=== PATIENT | female | born 1980 | race Caucasian/White ===

== ENCOUNTER 2017-05-22 18:28 | Emergency (ER) | payer MEDICAID, SELFPAY ==
[2017-05-22 18:29] VITALS: BP 135/78; PULSE 62; RESP 14; TEMP 36.2; O2SAT 100; BMI 25.5
[2017-05-22 18:39] VITALS: BP 101/74; PULSE 68; RESP 14; O2SAT 98
--- NOTE | 2017-05-22 18:55 | RAD_ITS ---
STUDY: X-RAY - LEFT WRIST REASON FOR EXAM: Female, 36 years old. Left-sided wrist pain for several months. Patient states she injured it at work. TECHNIQUE: 3 view(s) of the wrist were obtained. COMPARISON: None. FINDINGS: Normal visualized distal radius and ulna. Normal radiocarpal articulation. Normal distal radioulnar articulation. Normal carpal bones. Normal carpal articulations. Normal carpometacarpal articulation of the thumb. Normal second through fifth carpometacarpal articulations. Normal visualized metacarpal bones. There is mild soft tissue swelling. There is no demonstrated acute fracture. RAD/Wrist min 3 Views IMPRESSION: Soft tissue swelling. There is no radiographic evidence for healing fracture. Electronically Signed: Mei Duarte MD at 19:19 EST , Service support ,
--- NOTE | 2017-05-22 19:34 | ED.VISSUMM ---
- ER Visit Summary Date of Service: 05/22/17 Chief Complaint: Left wrist pain History of Present Illness: The patient is a 36 F who states that she injured her left wrist a couple months ago. She believes this happened when she picked up something in a wrong angle and twisted it funny. She is now started to have more pain in that wrist especially when putting pressure on her hand. She is right-hand dominant. She has not seen anyone for this. She does report a history of reflux disease. Physical Examination: Vital signs are unremarkable. Head neck examination is normal. Heart is regular rate and rhythm. Lung sounds are clear. Left upper extremity examination reveals mild tenderness over the extensor tendons of the left wrist. There is no evidence of edema or erythema. She has normal cap refill and sensation. Test Results: Left wrist x-rays reveal soft tissue swelling. There is no evidence of a healing fracture. Emergency Department Course and Treatment: Patient has had problems with NSAIDs in the past. She will be treated with a short dose of prednisone along with a Velcro wrist splint. Treatment Plan: [] Disposition: Discharge Impression: Tendinitis left wrist This note was generated with [employer] dictation software. It may contain incorrect words, spelling, and punctuation that were not noted in review of the chart prior to signing ED Disposition - Plan for ED Patient: Disposition: Home or Assisted Living Chief Complaint: Upper Extremity Injury Instructions: ED Tendinitis Calcific Prescriptions: Prednisone [Deltasone] 40 mg PO DAILY #10 tablet Referrals: Ta Petty MD [Primary Care Provider] - 1-2 Weeks
[2017-05-22 19:49] VITALS: BP 106/71; PULSE 76; RESP 16; O2SAT 100
== END 2017-05-22 19:49 | disposition home or self-care (01) ==
PROVIDERS: Emergency Provider Emergency Medicine; Family Provider Family Medicine; PCP Family Medicine
DX: M77.9 Enthesopathy, unspecified (principal); K21.9 Gastro-esophageal reflux disease without esophagitis; X50.1XXA Overexertion from prolonged static or awkward postures, initial encounter; Y93.9 Activity, unspecified; Y92.9 Unspecified place or not applicable; Z86.59 Personal history of other mental and behavioral disorders; Z87.891 Personal history of nicotine dependence
CPT/HCPCS: 73110; 99283

== ENCOUNTER 2017-07-01 10:46 | Emergency (ER) | payer MEDICAID, SELFPAY ==
[2017-07-01 10:46] VITALS: BP 132/85; PULSE 70; RESP 16; TEMP 37.1; O2SAT 100; BMI 24.5
--- NOTE | 2017-07-01 11:16 | ED.VISSUMM ---
- ER Visit Summary Date of Service: 07/01/17 Chief Complaint: Left wrist pain History of Present Illness: The patient is a 36 F reports initial pain to her left wrist that started last February. She does do repetitive motion at work. She was seen in the ER on May 22 but did not want to file Worker's Comp. at that time. Her symptoms were consistent with tendinitis. X-ray was negative. She is given prednisone in a Velcro wrist splint. 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 She now wishes to file under Worker's Comp. She is right-hand dominant. She states that she has been taking Tylenol and ibuprofen without improvement. Physical Examination: Vital signs are unremarkable. Head and neck examination is unremarkable. Heart is regular rate and rhythm. Lung sounds are clear. Left upper extremity examination reveals minimal tenderness to palpation of the dorsal left wrist. No masses are noted. She is normal coloration. She has full range of motion with normal strength and sensation. Test Results: Patient had x-rays performed approximately 6 weeks ago. There is no indication for repeat imaging at this time. Emergency Department Course and Treatment: We placed in an Allen wrap. I will offer her another short course of prednisone, but do not feel that narcotics are necessary. She is already taking Tylenol and ibuprofen at home. Patient will now be given referral [facility] evaluation if needed. Treatment Plan: [] Disposition: Discharge Impression: Tendinitis left wrist This note was generated with [employer] dictation software. It may contain incorrect words, spelling, and punctuation that were not noted in review of the chart prior to signing ED Disposition - Plan for ED Patient: Chief Complaint: Upper Extremity Injury Referrals: Ta Petty MD [Primary Care Provider] -
--- NOTE | 2017-07-01 11:19 | ED.DCSUM_ITS ---
- ER Visit Summary Date of Service: 07/01/17 Chief Complaint: Left wrist pain History of Present Illness: The patient is a 36 F reports initial pain to her left wrist that started last February. She does do repetitive motion at work. She was seen in the ER on May 22 but did not want to file Worker's Comp. at that time. Her symptoms were consistent with tendinitis. X-ray was negative. She is given prednisone in a Velcro wrist splint. 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 She now wishes to file under Worker's Comp. She is right- hand dominant. She states that she has been taking Tylenol and ibuprofen without improvement. Physical Examination: Vital signs are unremarkable. Head and neck examination is unremarkable. Heart is regular rate and rhythm. Lung sounds are clear. Left upper extremity examination reveals minimal tenderness to palpation of the dorsal left wrist. No masses are noted. She is normal coloration. She has full range of motion with normal strength and sensation. Test Results: Patient had x-rays performed approximately 6 weeks ago. There is no indication for repeat imaging at this time. Emergency Department Course and Treatment: We placed in an Allen wrap. I will offer her another short course of prednisone, but do not feel that narcotics are necessary. She is already taking Tylenol and ibuprofen at home. Patient will now be given referral to [facility] for orthopedic evaluation if needed. Treatment Plan: [] Disposition: Discharge Impression: Tendinitis left wrist This note was generated with [employer] dictation software. It may contain incorrect words, spelling, and punctuation that were not noted in review of the chart prior to signing ED Disposition - Plan for ED Patient: Chief Complaint: Upper Extremity Injury Referrals: Ta Petty MD [Primary Care Provider] -
--- NOTE | 2017-07-01 11:20 | ED.DEP ---
ED Disposition - Plan for ED Patient: Disposition: Home or Assisted Living Chief Complaint: Upper Extremity Injury Instructions: ED Sprain Wrist Prescriptions: Prednisone 10 mg PO UD #33 tablet Referrals: [facility] OF PHYSICIANS] - 3-5 Days
== END 2017-07-01 11:36 | disposition home or self-care (01) ==
PROVIDERS: Emergency Provider Emergency Medicine; Family Provider Family Medicine; PCP Family Medicine
DX: M77.9 Enthesopathy, unspecified (principal); Z86.59 Personal history of other mental and behavioral disorders; Z87.891 Personal history of nicotine dependence
CPT/HCPCS: 99282

== ENCOUNTER → 2019-12-21 17:05 | Outpatient (CLI) | payer MEDICAID, SELFPAY | PROVIDERS: PCP Family Medicine; Referring Provider Family Medicine; Visit Provider Family Medicine | DX: Z20.828 Contact with and (suspected) exposure to other viral communicable diseases (principal) | CPT/HCPCS: 87635; C9803; U0003 ==

== ENCOUNTER 2022-12-06 16:39 | Emergency (ER) | payer SELFPAY ==
[2022-12-06 16:41] VITALS: BP 145/88; PULSE 63; RESP 18; TEMP 36.6; O2SAT 100; BMI 37.5
--- NOTE | 2022-12-06 16:48 | EKG12_ITS ---
Test Reason : PALPATATIONS Blood Pressure : / mmHG Vent. Rate : 058 BPM Atrial Rate : 058 BPM P-R Int : 180 ms QRS Dur : 084 ms QT Int : 422 ms P-R-T Axes : 058 056 028 degrees QTc Int : 414 ms Sinus bradycardia Otherwise normal ECG Confirmed by ROJELIO LOVE, ELIN ([id number]), editor trade journal OWEN LANGFORD ([id number]) on 12/10/2022 11:33:28 AM Referred By: Confirmed By:ELIN SERRATO MD
--- NOTE | 2022-12-06 16:49 | ED.VIS.CHEST ---
HPI History of Present Illness Chief Complaint: Chest Pain Narrative Narrative: 42-year-old female states she has past medical history of sinus bradycardia for which she takes metoprolol, presents with heart palpitations that she has had over the last 3 days. At times she feels a fast, pounding heart rate. She states this afternoon around noon, 4-1/2 hours ago, she began having chest heaviness that has been constant. She feels more of a pressure sensation that is nonradiating. She began having right arm pain in her right pinky feels numb. She denies any DVT or PE risk factors. No exacerbating or alleviating factors. She is unsure if she really has any family history of early coronary artery disease less than age 55. She states she smokes cigarettes once in a blue brown and smoked last week. [facility] Medical History Physical exam, pre-employment Home Medications prednisone 20 mg tablet (Deltasone) 40 mg (2 x 20 mg) PO DAILY #10 tabs 05/22/17 [Rx Last Taken Unknown] prednisone 10 mg tablet 10 mg PO UD #33 tabs 07/01/17 [Rx Last Taken Unknown] Allergy/AdvReac Type Severity Reaction Status Date / Time nickel Allergy Rash Verified 12/06/22 16:41 Social History Smoking Status: Never smoker ROS ROS ED ROS Narrative Constitutional: No fever, no chills. HEENT: No sore throat. No neck pain. No loss of vision. No rhinorrhea. Cardiovascular: Positive chest pressure/chest pain. Positive palpitations. No pedal edema. Respiratory: No cough, questionable shortness of breath. Abdominal: No abdominal pain. No nausea. No vomiting. Genitourinary: No dysuria. No hematuria. Musculoskeletal: No myalgias. No arthralgias. Neurologic: No headaches. No dizziness. No lightheadedness. Skin: No rash. No change in color. Psychiatric: No depression. No anxiety. EXAM Physical Exam Narrative Exam Narrative: Afebrile. Vital signs noted. HEENT: Normocephalic. Atraumatic. PERRL, EOMI. Neck soft and supple. No point tenderness or step off. Cardiovascular: Regular rate and rhythm. No murmurs, rubs, or gallops appreciated. Respiratory: No tachypnea. Lungs clear to auscultation bilaterally. Gastrointestinal: Abdomen soft, nontender, with normoactive bowel sounds. No rebound or guarding. Neurological: Awake. Alert. Nonfocal, nonlateralizing. Skin: No rash. Normal color. No pallor. Musculoskeletal: No pedal edema. Full range of motion extremities. Const Vital Signs: 12/06/22 16:41 Temperature 97.8 F Temperature Source Temporal Pulse Rate 63 Respiratory Rate 18 Blood Pressure 145/88 H Blood Pressure Mean 107 Pulse Ox 100 Oxygen Delivery Method Room Air Heart Score History: Slightly/Non-Suspicious ECG: Normal Age: </= 45 years Risk Factors: 1 or 2 Risk Factors Troponin: </= Normal Limit Score: 1 MDM MDM MDM Narrative Medical decision making narrative: In the differential diagnosis is ACS, I have low suspicion for pulmonary embolism or aortic dissection because the history and physical is not suggestive of that. However, I will pain D-dimer to help rule out pulmonary embolism. EKG, chest x-ray, and serial troponins will be obtained to help rule out ACS. EKG was obtained and interpreted by myself independently as normal sinus bradycardia at 58 bpm without ectopy or acute ST changes. No STEMI. Review of her laboratory work shows normal white count of 7.0, hemoglobin normal at 13.4, platelet count normal at 337. D-dimer is negative at 0.35, initial high-sensitivity troponin normal at 3. Her electrolyte panel shows an anion gap low at 3 with a creatinine of 0.66 and a glucose appropriately elevated at 91. Sodium, potassium, and chloride are normal at 137, 3.9, and 106 respectively. Chest x-ray in 1 view interpreted by myself independently shows no acute process, no pneumonia or pneumothorax. I reviewed the radiology report which confirms my independent interpretation. Her 2-hour delta troponin/HST returned at 4 for a delta of 1. 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 Return instructions to the emergency department were reviewed. Disposition is discharged home in stable condition. History & Record Review Discussion w/independent historian: Patient Additional record(s) reviewed:: Prior ED visit and Prior labs Lab Data Attestation: I reviewed the patient's lab results. Labs: Laboratory Results - last 24 hr 12/06/22 12/06/22 16:55 19:10 WBC 7.0 RBC 4.01 L Hgb 13.4 Hct 39.2 MCV 97.8 MCH 33.4 H MCHC 34.2 RDW Std Deviation 43.4 RDW Coeff of Fanta 12.0 Plt Count 337 MPV 8.3 Immature Gran % (Auto) 0.300 Neut % (Auto) 69.4 Lymph % (Auto) 22.0 [place] % (Auto) 6.3 Eos % (Auto) 1.4 Baso % (Auto) 0.6 Absolute Neuts (auto) 4.8 Absolute Lymphs (auto) 1.53 Nucleated RBC % 0 D-Dimer Quant (PE/DVT) 0.35 Sodium 137 Potassium 3.9 Chloride 106 Carbon Dioxide 28.0 Anion Gap 3 L BUN 10 Creatinine 0.66 Estim Creat Clear Calc 88.72 Est GFR (MDRD) Af Amer 127 Est GFR (MDRD) Non-Af 105 BUN/Creatinine Ratio 15.2 Glucose 91 Calcium 8.7 Troponin I High Sens 3 4 Radiography Diagnostic Testing: Clinical Impression(s) from Imaging Studies Chest X-Ray 12/06/22 17:15 IMPRESSION: Normal x-ray examination of the chest. Electronically Signed: Pascale Shah MD at 18:01 EDT , Discharge Plan Triage Chief Complaint: Chest Pain ED Provider: Ronnie Prieto Dx/Rx/DC Orders Clinical Impression: Arm pain, Chest pain Instructions: ED Chest Pain, Uncertain Cause, ED Pain, Acute, Uncertain Cause Prescriptions: No Action prednisone [Deltasone] 20 MG tablet 40 mg PO DAILY Qty: 10 0RF Rx Instructions: With food prednisone 10 MG tablet 10 mg PO UD Qty: 33 0RF Rx Instructions: Take 4 tablets daily for 3 days, then 3 daily for 3 days, then 2 daily for 3 days, then 1 a day for 3 days then 1 QOD for 3 doses. Primary Care Provider: Ta Petty Referrals: Ta Petty MD [Primary Care Provider] - 3-5 Days Activity Restrictions/Additional Instructions: Follow-up with your government sales manager, Dr. Roberts, as well hopefully within the next week. Return with increasing pain, new or worsening symptoms. Disposition Disposition: Home, Self Care
[2022-12-06] MEDS: 0.9% Normal Saline 1,000 ML 1000 ML IV (16:59)
[2022-12-06] MEDS: Aspirin 81 MG TAB.CHEW 324 MG PO (16:59)
[2022-12-06 17:11] LABS: Absolute Lymphocyte Count 1.53 X10^3/uL (0.83-4.51); Absolute Neutrophil Count 4.8 X10^3/uL (2.0-7.7); Basophil# 0.04 X10^3/uL; Basophil% 0.6 % (0-1); Eosinophils% 1.4 % (0-5); Hematocrit 39.2 % (37-47); Hemoglobin 13.4 g/dL (12.0-15.0); Lymphocyte # 1.53 X10^3/ul (0.83-4.51); Mean Corp Hgb Conc 34.2 g/dL (32-36); Mean Corpuscular Hgb 33.4 pg (27.0-32.0); Mean Corpuscular Volume 97.8 fL (81-99); Mean Platelet Vol. 8.3 fl (6.2-12.0); Monocyte# 0.44 X10^3/uL; Monocyte% 6.3 % (0-10); NRBC Flagged by Analyzer 0 % (0-5); Neutrophil # 4.84 X10^3/uL (2.7-7.7); Neutrophil % 69.4 % (47-70); Platelet Count 337 K/mm3 (150-450); RBC Distribution Width SD 43.4 fl (35.1-43.9); Red Blood Count 4.01 M/mm3 (4.2-5.4)
--- NOTE | 2022-12-06 17:15 | RAD_ITS ---
STUDY: X-RAY CHEST REASON FOR EXAM: Female, 42 years old. chest pain TECHNIQUE: Single AP portable view of the chest. COMPARISON: None. FINDINGS: The lungs are clear and expanded. There is no demonstrated pleural abnormality. Normal size heart. Normal mediastinum and jane. Normal visualized pulmonary arteries. Normal visualized aortic arch and descending thoracic aorta. Normal visualized thoracic spine. Normal visualized ribs, clavicles, and shoulders. There is no demonstrated abnormality of the visualized soft tissue structures of the upper abdomen. RAD/Chest 1 View (Portable) IMPRESSION: Normal x-ray examination of the chest. Electronically Signed: Pascale Shah MD at 18:01 EDT ,
[2022-12-06 17:25] LABS: D-Dimer Quantitative (DVT/PE) 0.35 FEU/ug/m (0.27-0.49)
[2022-12-06 17:31] LABS: Anion Gap 3 (5-15); BUN 10 mg/dL (7-18); BUN/Creat Ratio 15.2 RATIO (10-20); Calcium,Total 8.7 mg/dL (8.5-10.1); Chloride 106 mmol/L (98-107); Creatinine, Serum 0.66 mg/dL (0.55-1.02); EST Glomerular Filtration Rate 105 mL/min (>60); Est Glom Filt Rate - Afr Amer 127 mL/min (>60); Estimated Creatinine Clearance 88.72 ml/min; Glucose 91 mg/dL (74-106); Potassium 3.9 mmol/L (3.5-5.1); Sodium Level 137 mmol/L (136-145); Troponin-I HS (w/2H Reflex) 3 pg/mL (3.0-54.0)
[2022-12-06 19:04] LABS: Reflex Troponin-HS? (from REC) Y
[2022-12-06 20:18] LABS: Troponin-I HS 4 pg/mL (3.0-54.0)
[2022-12-06 20:48] VITALS: BP 119/91; PULSE 54; RESP 18
== END 2022-12-06 20:52 | disposition home or self-care (01) ==
PROVIDERS: Emergency Provider Emergency Medicine; PCP Family Medicine; Visit Provider Emergency Medicine
DX: R07.9 Chest pain, unspecified (principal); R00.1 Bradycardia, unspecified; F17.210 Nicotine dependence, cigarettes, uncomplicated; Z79.899 Other long term (current) drug therapy; M79.601 Pain in right arm
CPT/HCPCS: 71045; 80048; 84484; 85025; 85379; 93005; 96360; 99285; J7030; A4216

== ENCOUNTER 2024-03-27 10:31 | Emergency (ER) | payer OTHER, SELFPAY ==
[2024-03-27 10:32] VITALS: BP 133/90; PULSE 71; RESP 18; TEMP 37.1; O2SAT 98; BMI 38.9
--- NOTE | 2024-03-27 10:56 | EDS_ITS ---
HPI History of Present Illness Chief Complaint: Cough Informant: patient Narrative Narrative: 43-year-old female states for the past month she has had a cough and intermittent runny nose. She states her chest is sore and she is now bringing up yellow sputum. She states that towards the been of the month she went to [facility] and she states that she was told that her enzymes are little bit high. She is referring to her liver enzymes per her. Patient states towards the end of the H&P that she just left urgent care where they did a chest x-ray. She states that her mom who is a nurse told her she should have come to the hospital because we would do more. She states that she needs blood work to look more closely at this. No reported fevers. She is not an asthmatic. She does not wear home oxygen. She notes her throat is sore. No rashes. No diarrhea. No volume losses. She states that urgent care told her that she had a viral URI. She also tells me that her daughter has been checked in as an emergency department patient because she has had a cough and they are concerned that she aspirated last night. [facility] Medical History Cough Physical exam, pre-employment Home Medications ?Medication ?Instructions ?Recorded ?Last Taken ?Type buspirone 5 mg tablet 5 mg PO TID 12/06/22 Unknown History fluoxetine 40 mg capsule 40 mg PO DAILY 12/06/22 Unknown History metoprolol succinate 25 mg 25 mg PO DAILY 12/06/22 Unknown History tablet,extended release 24 hr Allergy/AdvReac Type Severity Reaction Status Date / Time nickel Allergy Rash Verified 03/27/24 10:32 Social History Smoking Status: Current some day smoker tobacco type: cigars ROS ROS ED Constitutional Constitutional ED: Reports chills; Denies fever(s) or weight loss Eyes Eyes: Denies change in vision or diplopia ENT ENT ED: Reports sore throat; Denies ear pain or rhinorrhea Cardiovascular Cardiovascular: Reports chest pain; Denies orthopnea, palpitations or racing heartbeat Respiratory/Chest Respiratory/Chest: Reports cough and sputum; Denies dyspnea or orthopnea Gastrointestinal Gastrointestinal: Denies abdominal pain, diarrhea, nausea or vomiting Genitourinary Genitourinary ED: Denies dysuria, hematuria or urinary frequency Musculoskeletal Musculoskeletal: Denies arthralgias or myalgias Integumentary Denies abscess or rash Neurologic Neurologic: Denies headache(s) or weakness Psychiatric Psychiatric: Denies anxiety, depression, suicidal ideation or suicidal thoughts Endocrine Endocrinology: Denies polydipsia, polyphagia or polyuria Allergic/Immunologic Allergic/Immunologic ED: Denies mouth swelling, tongue swelling or urticaria EXAM Physical Exam Const Vital Signs: 03/27/24 10:32 Temperature 98.8 F Temperature Source Oral Pulse Rate 71 Respiratory Rate 18 Blood Pressure 133/90 H Blood Pressure Mean 104 Pulse Ox 98 Oxygen Delivery Method Room Air Positive well nourished, well developed and obese General Appearance ED: well developed and NAD Nutritional Appearance: obese HEENT Reports normocephalic, head/scalp atraumatic and moist mucous membranes Eyes PERRL and EOMs intact bilaterally Neck no lymphadenopathy, supple and no JVD Chest Wall Chest Narrative: Anterior chest wall tender to palpation Resp normal respiratory effort and clear to auscultation bilaterally Cardio regular rate, regular rhythm and no murmurs GI normal to inspection, nondistended, normoactive bowel sounds and non-tender Palpation: soft Back/Spine no CVA tenderness and normal ROM Extremity normal to inspection General Extremety ED: Negative for edema General Extremity: Negative for edema Neuro oriented x3 and CN's II-XII intact bilaterally Sensorium / Orientation: alert Motor Exam: strength 5/5 throughout Psych mental status grossly normal Mood & Affect: Negative for depressed or tearful Skin no rashes or lesions noted and no wounds MDM MDM MDM Narrative Medical decision making narrative: Differential diagnosis includes but not limited to viral URI viral syndrome bronchitis pneumonia pleural effusion Patient's white count nonspecifically elevated 14.5 hemoglobin 14.3 platelet count of 300 BMP within normal limits glucose 118 liver enzymes are within normal limits lipase 23. I was able to obtain the patient's chest x-ray results from the [facility] urgent care visit this morning. This was read by radiology and shows no acute radiographic abnormality. I am not able to personally review the images. Clinically the patient has had some nasal congestion cough for a month. She clinically though has stable vital signs clear chest x-ray and other than a nonspecific elevation of her white count negative labs. Think she can be treated supportively. History & Record Review Discussion w/independent historian: Patient Additional record(s) reviewed:: Prior outpatient record Lab Data Attestation: I reviewed the patient's lab results. Labs: Laboratory Results - last 24 hr 03/27/24 11:05 WBC 14.5 H RBC 4.45 Hgb 14.3 Hct 42.8 MCV 96.2 MCH 32.1 H MCHC 33.4 RDW Std Deviation 42.0 RDW Coeff of Fanta 11.9 Plt Count 300 MPV 8.2 Immature Gran % (Auto) 0.600 Neut % (Auto) 87.9 H Lymph % (Auto) 7.0 L [place] % (Auto) 3.7 Eos % (Auto) 0.5 Baso % (Auto) 0.3 Absolute Neuts (auto) 12.8 H Absolute Lymphs (auto) 1.02 Nucleated RBC % 0 Sodium 136 Potassium 4.4 Chloride 105 Carbon Dioxide 27.0 Anion Gap 4 L BUN 8 Creatinine 0.66 Estim Creat Clear Calc 120.44 Est GFR (MDRD) Af Amer 125 Est GFR (MDRD) Non-Af 104 BUN/Creatinine Ratio 12.1 Glucose 118 H Calcium 9.2 Total Bilirubin 0.50 Direct Bilirubin 0.13 AST 28 ALT 50 Alkaline Phosphatase 103 Total Protein 7.6 Albumin 3.3 Globulin 4.3 H Lipase 23 Discharge Plan Triage Chief Complaint: Cough ED Provider: Michael Johansen Dx/Rx/DC Orders Prescriptions: No Action buspirone 5 mg tablet 5 mg PO TID Patient Comments: TAKE 1 TABLET BY MOUTH THREE TIMES DAILY metoprolol succinate 25 mg tablet extended release 24 hr 25 mg PO DAILY Patient Comments: TAKE 1 TABLET BY MOUTH ONCE DAILY fluoxetine 40 mg capsule 40 mg PO DAILY Patient Comments: TAKE 1 CAPSULE BY MOUTH ONCE DAILY Primary Care Provider: Ta Petty Referrals: Ta Petty MD [Primary Care Provider] - Print Language: Lithuanian
[2024-03-27 11:10] LABS: Absolute Lymphocyte Count 1.02 X10^3/uL (0.83-4.51); Absolute Neutrophil Count 12.8 X10^3/uL (2.0-7.7); Basophil# 0.05 X10^3/uL; Basophil% 0.3 % (0-1); Eosinophil# 0.07 X10^3/uL; Eosinophils% 0.5 % (0-5); Hematocrit 42.8 % (37-47); Hemoglobin 14.3 g/dL (12.0-15.0); Lymphocyte # 1.02 X10^3/ul (0.83-4.51); Mean Corp Hgb Conc 33.4 g/dL (32-36); Mean Corpuscular Hgb 32.1 pg (27.0-32.0); Mean Corpuscular Volume 96.2 fL (81-99); Mean Platelet Vol. 8.2 fl (6.2-12.0); Monocyte# 0.54 X10^3/uL; Monocyte% 3.7 % (0-10); NRBC Flagged by Analyzer 0 % (0-5); Neutrophil # 12.75 X10^3/uL (2.7-7.7); Neutrophil % 87.9 % (47-70); Platelet Count 300 K/mm3 (150-450); RBC Distribution Width CV 11.9 % (11.6-14.6); Red Blood Count 4.45 M/mm3 (4.2-5.4); White Blood Count 14.5 K/mm3 (4.4-11.0)
[2024-03-27 11:37] LABS: AST(SGOT) 28 U/L (15-37); Alanine Aminotransfer ALT/SGPT 50 U/L (13-56); Albumin, Serum 3.3 g/dL (3.2-5.0); Alkaline Phosphatase 103 U/L (45-117); Anion Gap 4 (5-15); BUN 8 mg/dL (7-18); BUN/Creat Ratio 12.1 RATIO (10-20); Bilirubin, Direct 0.13 mg/dL (0.00-0.30); Calcium,Total 9.2 mg/dL (8.5-10.1); Chloride 105 mmol/L (98-107); Creatinine, Serum 0.66 mg/dL (0.55-1.02); EST Glomerular Filtration Rate 104 mL/min (>60); Est Glom Filt Rate - Afr Amer 125 mL/min (>60); Estimated Creatinine Clearance 120.44 ml/min; Globulin 4.3 g/dL (2.2-4.2); Glucose 118 mg/dL (74-106); Lipase 23 U/L (13-75); Potassium 4.4 mmol/L (3.5-5.1); Protein, Total 7.6 g/dL (6.4-8.2); Sodium Level 136 mmol/L (136-145)
[2024-03-27 11:53] VITALS: BP 122/70; PULSE 69; RESP 18; TEMP 37.2; O2SAT 96
== END 2024-03-27 12:06 | disposition home or self-care (01) ==
PROVIDERS: Emergency Provider Emergency Medicine; PCP Family Medicine; Visit Provider Emergency Medicine
DX: R05.9 Cough, unspecified (principal); J02.9 Acute pharyngitis, unspecified; F17.290 Nicotine dependence, other tobacco product, uncomplicated
CPT/HCPCS: 80048; 80076; 83690; 85025; 99283; A4216